=== PATIENT | female | born 1990 | race Hispanic/Latino ===

== ENCOUNTER 2019-09-05 10:41 | Emergency (ER) | payer OTHER ==
[2019-09-05] MEDS ORDERED: Acetaminophen 500 MG TAB ONE (11:06)
== END 2019-09-05 11:10 | disposition home or self-care (01) ==
LOC: NAV ERS 10:41
DX: H60.93 Unspecified otitis externa, bilateral (principal); F41.9 Anxiety disorder, unspecified

== ENCOUNTER 2019-09-05 23:35 | Emergency (ER) | payer OTHER ==
[2019-09-05] MEDS ORDERED: Ibuprofen 800 MG TAB ONE (23:57)
[2019-09-06] MEDS ORDERED: Acetaminophen/Codeine 30-300mg Tablet ONE (00:03)
== END 2019-09-06 01:05 | disposition home or self-care (01) ==
LOC: NAV ERS 23:35
DX: H60.93 Unspecified otitis externa, bilateral (principal); F41.9 Anxiety disorder, unspecified
CPT/HCPCS: 99282

== ENCOUNTER 2019-09-08 11:10 | Emergency (ER) | payer OTHER ==
[2019-09-08] MEDS ORDERED: Sodium Chloride 0.9% 100 ML ONE (11:42)
[2019-09-08] MEDS ORDERED: cefTRIAXone\\ROCEPHIN 1 GM VIAL ONE (11:42)
[2019-09-08 12:00] LABS: #Basophils 0.1 thou/uL (0.0-0.2); #Eosinphils 0.1 thou/uL (0.0-0.7); #Lymphocytes 1.8 thou/uL (1.20-3.40); #Monocytes 0.5 thou/uL (0.11-0.59); #Neutrophils 6.7 thou/uL (1.40-6.50); %Basophils 0.8 % (0.0-1.0); %Lymphocytes 19.9 % (21.0-51.0); %Monocytes 5.2 % (0.0-10.0); %Neutrophils 73.1 % (42.0-75.0); Hemoglobin 12.6 g/dL (12.0-16.0); Mean Corpuscular HGB CONC 30.9 g/dL (32.0-36.0); Mean Corpuscular Hemoglobin 25.5 pg (27.0-31.0); Mean Corpuscular Volume 82.6 fL (78.0-98.0); Mean Platelet Volume 7.9 fL (7.4-10.4); Platelet Count 291 thou/uL (130-400); RBC Distribution Width 13.1 % (11.5-14.5); Red Blood Cell (RBC) Count 4.94 mill/uL (4.20-5.40); White Blood Cell (WBC) Count 9.1 thou/uL (4.8-10.8)
[2019-09-08] MEDS ORDERED: methylPREDNISolone Sod Succ/PF 125 MG/2 ML VIAL ONE (12:34)
[2019-09-08] MEDS ORDERED: Acetaminophen/Codeine 30-300mg Tablet ONE (12:35)
--- NOTE | 2019-09-08 15:32 | CT ---
CT OF INTERNAL AUDITORY CANALS PERFORMED WITHOUT CONTRAST ENHANCEMENT: History: Ear pain, also with fever. FINDINGS: Visualized brain parenchyma appears unremarkable. There is moderate mastoid air cell opacification bilaterally. There is also bilateral middle ear cell mucosal change. I do not see any signs of any bony erosive change to suggest any type of cholesteato ma. Ossicular chains appear to be in normal positions. IMPRESSION: Bilateral mastoid air cell disease and bilateral middle ear changes. POS: RODO
== END 2019-09-08 12:45 | disposition home or self-care (01) ==
LOC: NAV ERS 11:10
DX: H70.003 Acute mastoiditis without complications, bilateral (principal); H60.93 Unspecified otitis externa, bilateral; F41.9 Anxiety disorder, unspecified; Z79.899 Other long term (current) drug therapy
CPT/HCPCS: 70480; 83605; 85025; 96365; 96375; J0696; J2930; J3490

== ENCOUNTER 2021-01-05 10:26 | Emergency (ER) | payer OTHER, SELFPAY ==
[2021-01-05 11:05] LABS: Bilirubin Negative (Negative); Blood, Urine Negative (Negative); Clarity Slightly Cloudy (Clear); Glucose, Urine (Dipstick) Negative (Negative); Ketone, Urine Negative (Negative); Leukocyte Small (Negative); Nitrite Negative (Negative); Protein, Urine (Dipstick) Negative (Neg-Trace); Urobilinogen 0.2 mg/dL (Less than 2)
[2021-01-05 11:12] LABS: Pregnancy Test - Urine (BHCG) Negative (Negative); Pregu Control Background? CLEAR/WHITE (CLR/WHITE); Pregu Control Bar Appear? YES (CONTROL BAR)
[2021-01-05 11:18] LABS: Bacteria/HPF 1+ HPF (None Seen); RBC/HPF 0-3 HPF (0-3); Trichomonas/HPF 1+ HPF (None Seen)
[2021-01-05 20:49] LABS: Chlamydia by PCR Not Detected (NotDetected); GC by PCR Not Detected (NotDetected)
== END 2021-01-05 11:59 | disposition home or self-care (01) ==
LOC: NAV ERS 10:26
DX: A59.01 Trichomonal vulvovaginitis (principal); Z20.2 Contact with and (suspected) exposure to infections with a predominantly sexual mode of transmission
CPT/HCPCS: 81003; 81015; 81025; 87077; 87086; 87480; 87491; 87510; 87591; 87660; 99283